=== PATIENT | female | born 2000 | race Hispanic/Latino ===

== ENCOUNTER 2022-12-11 08:38 | Emergency (ER) | payer SELFPAY ==
[2022-12-11] MEDS ORDERED: Morphine 4 MG/ML VIAL ONE (08:58)
[2022-12-11] MEDS ORDERED: Ondansetron PF 4 MG/2 ML Vial ONE ×2 (08:58→12:02)
[2022-12-11 09:23] LABS: ALT (SGPT) 16 U/L (8-55); AST (SGOT) 21 U/L (5-34); Albumin 4.6 g/dL (3.5-5.0); Alkaline Phosphatase 41 U/L (40-110); Anion Gap 16 mmol/L (10-20); BUN (Urea Nitrogen) 12 mg/dL (7.0-18.7); Bilirubin, Total 0.3 mg/dL (0.2-1.2); Calc. Creatinine Clearance 0 mL/min (70-130); Calcium 9.6 mg/dL (7.8-10.44); Carbon Dioxide 20 mmol/L (22-29); Chloride 104 mmol/L (98-107); Estimated GFR 100; Globulin 2.8 g/dL (2.4-3.5); Glucose 144 mg/dL (70-105); Lipase 30 U/L (8-78); Potassium 3.4 mmol/L (3.5-5.1); Protein, Total 7.4 g/dL (6.0-8.3); Sodium 137 mmol/L (136-145)
[2022-12-11 09:38] LABS: #Basophils 0.1 thou/uL (0.0-0.2); #Eosinphils 0.1 thou/uL (0.0-0.7); #Lymphocytes 2.6 thou/uL (1.20-3.40); #Monocytes 0.5 thou/uL (0.11-0.59); #Neutrophils 6.6 thou/uL (1.40-6.50); %Basophils 0.9 % (0.0-1.0); %Eosinophils 1.3 % (0.0-10.0); %Lymphocytes 26.5 % (21.0-51.0); %Monocytes 5.3 % (0.0-10.0); Hemoglobin 12.7 g/dL (12.0-16.0); Mean Corpuscular HGB CONC 32.2 g/dL (32.0-36.0); Mean Corpuscular Hemoglobin 30.5 pg (27.0-31.0); Mean Corpuscular Volume 94.9 fl (78.0-98.0); Mean Platelet Volume 7.8 fL (7.4-10.4); Platelet Count 199 10x3/uL (130-400); RBC Distribution Width 11.6 % (11.5-14.5); Red Blood Cell (RBC) Count 4.17 mill/uL (4.20-5.40); White Blood Cell (WBC) Count 9.9 10x3/uL (4.8-10.8)
[2022-12-11 09:41] LABS: BHCG - Serum Negative (NEGATIVE); Pregs Control Bar Appear? YES (CONTROL BAR)
[2022-12-11 09:46] LABS: Prothrombin Time 13.2 sec (12.0-14.7)
[2022-12-11 09:47] LABS: PTT 23.7 sec (22.9-36.1)
[2022-12-11 09:49] LABS: D-Dimer Test Less than 0.27 *mcg/mL (0.27-0.43)
[2022-12-11] MEDS ORDERED: Pantoprazole 40 MG VIAL ONE (09:57)
[2022-12-11] MEDS ORDERED: Metoclopramide HCl 10 MG/2 ML VIAL ONE (09:59)
[2022-12-11] MEDS ORDERED: Morphine 2 MG/ML VIAL ONE (09:59)
[2022-12-11 10:00] LABS: Bilirubin Negative (Negative); Blood, Urine Trace (Negative); Clarity Clear (Clear); Glucose, Urine (Dipstick) Negative (Negative); Ketone, Urine 40 mg/dL (Negative); Leukocyte Negative (Negative); Nitrite Negative (Negative); Protein, Urine (Dipstick) Negative (Neg-Trace); Specific Gravity, Urine 1.015 (1.005-1.030); Urobilinogen 0.2 mg/dL (Less than 2)
[2022-12-11 10:07] LABS: Pregnancy Test - Urine (BHCG) Negative (Negative); Pregu Control Background? CLEAR/WHITE (CLR/WHITE); Pregu Control Bar Appear? YES (CONTROL BAR); Specific Gravity 1.015 (1.002-1.036)
[2022-12-11 10:08] LABS: Amphetamine Not Detected (NotDetected); Barbiturates Screen Not Detected (NotDetected); Benzodiazepine Screen Not Detected (NotDetected); Cocaine Metabolite Screen Not Detected (NotDetected); Methadone Not Detected (NotDetected); Methamphetamine Not Detected (NotDetected); Opiate Screen Detected (NotDetected); Oxycodone Screen Not Detected (NotDetected); Phencyclidine (PCP) Not Detected (NotDetected); THC/Cannabinoid Screen Detected (NotDetected); Tricyclic Screen Not Detected (NotDetected)
[2022-12-11 10:15] LABS: CAUTI Indications for Culture Urological Procedure; RBC/HPF 0-3 HPF (0-3); Squamous Epithelial None Seen HPF (0-3); WBC/HPF None Seen HPF (0-3)
[2022-12-11 10:16] LABS: Bacteria/HPF None Seen HPF (None Seen)
[2022-12-11 10:18] LABS: Urine Culture Reflex Yes Yes
[2022-12-11] MEDS ORDERED: Ketorolac Tromethamine 30 MG/ML VIAL ONE (12:02)
== END 2022-12-11 13:25 | disposition home or self-care (01) ==
LOC: NAV ERS 08:38
DX: R10.13 Epigastric pain (principal); R11.2 Nausea with vomiting, unspecified
CPT/HCPCS: 71275; 74176; 80053; 80306; 81001; 81025; 83690; 84484; 84703; 85025; 85379; 85610; 85730; 87086; 93005; 96374; 96375; 96376; C9113; J1885; J2270; J2272; J2405; J2765

== ENCOUNTER 2025-03-03 09:01 | Emergency (ER) | payer SELFPAY ==
[2025-03-03] MEDS ORDERED: Pantoprazole 40 MG VIAL ONE (09:27)
[2025-03-03] MEDS ORDERED: Ondansetron PF 4 MG/2 ML Vial ONE (09:27)
[2025-03-03 09:40] LABS: Hematocrit 42.8 % (36.0-47.0); Hemoglobin 15.0 g/dL (12.0-16.0); Mean Corpuscular Hemoglobin 31.0 pg (27.0-31.0); Mean Corpuscular Volume 88.7 fl (78.0-98.0); Platelet Count 269 10x3/uL (130-400); Red Blood Cell (RBC) Count 4.82 mill/uL (4.20-5.40); White Blood Cell (WBC) Count 13.4 10x3/uL (4.8-10.8)
[2025-03-03 09:41] LABS: BHCG - Serum Negative (NEGATIVE); Pregs Control Bar Appear? YES (CONTROL BAR)
[2025-03-03 09:45] LABS: MDiff Complete? YES
[2025-03-03 09:50] LABS: ALT (SGPT) 30 U/L (Less than 34); AST (SGOT) 36 U/L (11-34); Albumin 5.7 g/dL (3.1-4.5); Alkaline Phosphatase 47 U/L (40-110); Anion Gap 22 mmol/L (10-20); BUN (Urea Nitrogen) 36 mg/dL (7.0-18.7); Bilirubin, Total 1.1 mg/dL (0.3-1.2); Calc. Creatinine Clearance 0 mL/min (70-130); Calcium 10.6 mg/dL (7.8-10.44); Carbon Dioxide 20 mmol/L (22-29); Chloride 96 mmol/L (98-107); Globulin 3.4 g/dL (2.4-3.5); Glucose 134 mg/dL (70-105); Lipase 6 U/L (8-78); Potassium 3.4 mmol/L (3.5-5.1); Sodium 135 mmol/L (136-145)
[2025-03-03] MEDS ORDERED: Simethicone Chewable 80 MG TAB ONE (11:26)
[2025-03-03] MEDS ORDERED: Ketorolac Tromethamine 30 MG (1 mL) VIAL ONE (11:27)
[2025-03-03 11:28] LABS: Glucose, Urine (Dipstick) Negative (Negative); Leukocyte Negative (Negative); Protein, Urine (Dipstick) 100 mg/dL (Neg-Trace); Specific Gravity, Urine Greater/Equal 1.030 (1.005-1.030)
[2025-03-03 11:53] LABS: Bacteria/HPF 4+ HPF (None Seen); CAUTI Indications for Culture Pelvic or flank pain; RBC/HPF 0-3 HPF (0-3)
[2025-03-03 11:54] LABS: Urine Culture Reflex No No
== END 2025-03-03 12:45 | disposition home or self-care (01) ==
LOC: NAV ERS 09:01
DX: K59.89 Other specified functional intestinal disorders (principal)
CPT/HCPCS: 74176; 80053; 81001; 83690; 84703; 85025; 87086; 96361; 96374; 96375; J1885; J2272; J2405; J2470; J7030

== ENCOUNTER 2025-05-12 14:12 | Emergency (ER) | payer SELFPAY ==
[2025-05-12] MEDS ORDERED: Pantoprazole 40 MG VIAL ONE (14:21)
[2025-05-12] MEDS ORDERED: Ondansetron PF 4 MG/2 ML Vial ONE (14:21)
[2025-05-12 15:02] LABS: ALT (SGPT) 32 U/L (Less than 34); AST (SGOT) 36 U/L (11-34); Albumin 5.6 g/dL (3.1-4.5); Alkaline Phosphatase 50 U/L (40-110); Anion Gap 24 mmol/L (10-20); BUN (Urea Nitrogen) 22 mg/dL (7.0-18.7); Bilirubin, Total 0.9 mg/dL (0.3-1.2); Calc. Creatinine Clearance 0 mL/min (70-130); Calcium 10.4 mg/dL (7.8-10.44); Carbon Dioxide 20 mmol/L (22-29); Chloride 97 mmol/L (98-107); Globulin 3.1 g/dL (2.4-3.5); Glucose 158 mg/dL (70-105); Lipase 9 U/L (8-78); Potassium 3.6 mmol/L (3.5-5.1); Sodium 137 mmol/L (136-145)
[2025-05-12 15:07] LABS: BHCG - Serum Negative (NEGATIVE); Pregs Control Bar Appear? YES (CONTROL BAR)
[2025-05-12 15:17] LABS: #Basophils 0.0 thou/uL (0.0-0.2); #Eosinophils 0.0 thou/uL (0.0-0.7); #Lymphocytes 1.5 thou/uL (1.20-3.40); #Monocytes 0.6 thou/uL (0.11-0.59); #Neutrophils 11.5 thou/uL (1.40-6.50); %Basophils 0.3 % (0.0-1.0); %Eosinophils 0.0 % (0.0-10.0); %Lymphocytes 10.9 % (21.0-51.0); %Monocytes 4.5 % (0.0-10.0); %Neutrophils 84.3 % (42.0-75.0); Hematocrit 39.3 % (36.0-47.0); Hemoglobin 14.6 g/dL (12.0-16.0); Mean Corpuscular Hemoglobin 31.6 pg (27.0-31.0); Mean Corpuscular Volume 84.8 fl (78.0-98.0); Platelet Count 242 10x3/uL (130-400); Red Blood Cell (RBC) Count 4.64 mill/uL (4.20-5.40); White Blood Cell (WBC) Count 13.7 10x3/uL (4.8-10.8)
[2025-05-12 17:26] LABS: Glucose, Urine (Dipstick) Negative (Negative); Leukocyte Trace (Negative); Protein, Urine (Dipstick) Negative (Neg-Trace); Specific Gravity, Urine Less/Equal 1.005 (1.005-1.030)
[2025-05-12 17:35] LABS: Anion Gap 18 mmol/L (10-20); BUN (Urea Nitrogen) 18 mg/dL (7.0-18.7); Calc. Creatinine Clearance 0 mL/min (70-130); Calcium 8.3 mg/dL (7.8-10.44); Carbon Dioxide 18 mmol/L (22-29); Chloride 106 mmol/L (98-107); Glucose 114 mg/dL (70-105); Potassium 3.7 mmol/L (3.5-5.1); Sodium 138 mmol/L (136-145)
[2025-05-12 17:38] LABS: Bacteria/HPF 1+ HPF (None Seen); CAUTI Indications for Culture Pelvic or flank pain; RBC/HPF 0-3 HPF (0-3); WBC/HPF 0-3 HPF (0-3)
[2025-05-12 17:39] LABS: Urine Culture Reflex No No
== END 2025-05-12 17:56 | disposition home or self-care (01) ==
LOC: NAV ERS 14:12
DX: R10.10 Upper abdominal pain, unspecified (principal); R11.2 Nausea with vomiting, unspecified; N28.9 Disorder of kidney and ureter, unspecified; E86.0 Dehydration; D72.829 Elevated white blood cell count, unspecified
CPT/HCPCS: 80053; 81001; 83690; 84703; 85025; 96361; 96374; 96375; J2405; J2470; J7030

== ENCOUNTER 2025-05-13 02:15 | Emergency (ER) | payer SELFPAY ==
[2025-05-13] MEDS ORDERED: diphenhydrAMINE 50 MG/ML VIAL ONE (02:44)
[2025-05-13] MEDS ORDERED: Metoclopramide HCl 10 MG (2 mL) VIAL ONE (02:44)
[2025-05-13 03:05] LABS: #Basophils 0.0 thou/uL (0.0-0.2); #Eosinophils 0.0 thou/uL (0.0-0.7); #Lymphocytes 1.3 thou/uL (1.20-3.40); #Monocytes 0.7 thou/uL (0.11-0.59); #Neutrophils 10.6 thou/uL (1.40-6.50); %Basophils 0.4 % (0.0-1.0); %Eosinophils 0.0 % (0.0-10.0); %Lymphocytes 10.3 % (21.0-51.0); %Monocytes 5.7 % (0.0-10.0); %Neutrophils 83.6 % (42.0-75.0); Hematocrit 34.2 % (36.0-47.0); Hemoglobin 12.8 g/dL (12.0-16.0); Mean Corpuscular Hemoglobin 31.7 pg (27.0-31.0); Mean Corpuscular Volume 84.6 fl (78.0-98.0); Platelet Count 208 10x3/uL (130-400); Red Blood Cell (RBC) Count 4.05 mill/uL (4.20-5.40); White Blood Cell (WBC) Count 12.7 10x3/uL (4.8-10.8)
[2025-05-13 03:13] LABS: ALT (SGPT) 35 U/L (Less than 34); AST (SGOT) 34 U/L (11-34); Albumin 4.9 g/dL (3.1-4.5); Alkaline Phosphatase 41 U/L (40-110); Anion Gap 17 mmol/L (10-20); BUN (Urea Nitrogen) 15 mg/dL (7.0-18.7); Bilirubin, Total 0.9 mg/dL (0.3-1.2); Calc. Creatinine Clearance 0 mL/min (70-130); Calcium 9.3 mg/dL (7.8-10.44); Carbon Dioxide 19 mmol/L (22-29); Chloride 105 mmol/L (98-107); Globulin 2.6 g/dL (2.4-3.5); Glucose 132 mg/dL (70-105); Lipase 12 U/L (8-78); Potassium 3.5 mmol/L (3.5-5.1); Sodium 137 mmol/L (136-145)
[2025-05-13] MEDS ORDERED: Acetaminophen 325 MG TAB ONE (04:02)
== END 2025-05-13 04:48 | disposition home or self-care (01) ==
LOC: NAV ERS 02:15
DX: R10.12 Left upper quadrant pain (principal); R10.10 Upper abdominal pain, unspecified; R11.2 Nausea with vomiting, unspecified
CPT/HCPCS: 80053; 83690; 85025; 96361; 96374; 96375; J1200; J2765; J7030

== ENCOUNTER 2025-05-13 15:54 | Emergency (ER) | payer SELFPAY ==
[~2025-05-13 15:54] MED LIST: Iopamidol 370 76% 100 ML VIAL ONE
[2025-05-13] MEDS ORDERED: Ondansetron PF 4 MG/2 ML Vial ONE (16:25)
[2025-05-13] MEDS ORDERED: Pantoprazole 40 MG VIAL ONE (16:25)
[2025-05-13] MEDS ORDERED: Ketorolac Tromethamine 30 MG (1 mL) VIAL ONE (16:25)
[2025-05-13 16:40] LABS: #Basophils 0.0 thou/uL (0.0-0.2); #Eosinophils 0.0 thou/uL (0.0-0.7); #Lymphocytes 1.7 thou/uL (1.20-3.40); #Monocytes 0.7 thou/uL (0.11-0.59); #Neutrophils 6.8 thou/uL (1.40-6.50); %Basophils 0.1 % (0.0-1.0); %Eosinophils 0.0 % (0.0-10.0); %Lymphocytes 18.6 % (21.0-51.0); %Monocytes 7.5 % (0.0-10.0); %Neutrophils 73.8 % (42.0-75.0); Hematocrit 36.0 % (36.0-47.0); Hemoglobin 13.0 g/dL (12.0-16.0); Mean Corpuscular Hemoglobin 30.8 pg (27.0-31.0); Mean Corpuscular Volume 85.5 fl (78.0-98.0); Platelet Count 204 10x3/uL (130-400); Red Blood Cell (RBC) Count 4.21 mill/uL (4.20-5.40); White Blood Cell (WBC) Count 9.2 10x3/uL (4.8-10.8)
[2025-05-13 16:54] LABS: ALT (SGPT) 32 U/L (Less than 34); AST (SGOT) 33 U/L (11-34); Albumin 4.8 g/dL (3.1-4.5); Alkaline Phosphatase 36 U/L (40-110); Anion Gap 14 mmol/L (10-20); BUN (Urea Nitrogen) 10 mg/dL (7.0-18.7); Bilirubin, Total 0.9 mg/dL (0.3-1.2); Calc. Creatinine Clearance 0 mL/min (70-130); Calcium 9.1 mg/dL (7.8-10.44); Carbon Dioxide 22 mmol/L (22-29); Chloride 103 mmol/L (98-107); Globulin 2.4 g/dL (2.4-3.5); Glucose 138 mg/dL (70-105); Lipase 12 U/L (8-78); Potassium 3.3 mmol/L (3.5-5.1); Sodium 136 mmol/L (136-145)
[2025-05-13 17:51] LABS: Glucose, Urine (Dipstick) Negative (Negative); Leukocyte Negative (Negative); Protein, Urine (Dipstick) Negative (Neg-Trace); Specific Gravity, Urine 1.015 (1.005-1.030)
[2025-05-13 17:58] LABS: CAUTI Indications for Culture Pelvic or flank pain; RBC/HPF 0-3 HPF (0-3); WBC/HPF 0-3 HPF (0-3)
[2025-05-13 17:59] LABS: Urine Culture Reflex No No
[2025-05-13 18:01] LABS: Cocaine Metabolite Screen Negative (Negative); THC/Cannabinoid Screen PRELIM POSITIVE (Negative); Tricyclic Screen Negative (Negative)
== END 2025-05-13 20:36 | disposition short-term general hospital (02) ==
LOC: NAV ERS 15:54
DX: R10.11 Right upper quadrant pain (principal); R11.2 Nausea with vomiting, unspecified; R03.0 Elevated blood-pressure reading, without diagnosis of hypertension; Z79.899 Other long term (current) drug therapy
CPT/HCPCS: 74177; 80306; 81001; 82274; 83690; 96361; 96374; 96375; J1885; J2272; J2405; J2470; J7030; Q9967

== ENCOUNTER 2025-05-15 13:05 | Emergency (ER) | payer SELFPAY ==
[2025-05-15 14:51] LABS: BHCG - Serum Negative (NEGATIVE); Pregs Control Bar Appear? YES (CONTROL BAR)
[2025-05-15 15:00] LABS: Hematocrit 35.9 % (36.0-47.0); Hemoglobin 13.2 g/dL (12.0-16.0); Mean Corpuscular Hemoglobin 31.1 pg (27.0-31.0); Mean Corpuscular Volume 84.7 fl (78.0-98.0); Platelet Count 186 10x3/uL (130-400); Red Blood Cell (RBC) Count 4.23 mill/uL (4.20-5.40)
[2025-05-15] MEDS ORDERED: Metoclopramide HCl 10 MG (2 mL) VIAL ONE (15:00)
[2025-05-15] MEDS ORDERED: diphenhydrAMINE 50 MG/ML VIAL ONE (15:00)
[2025-05-15 15:02] LABS: ALT (SGPT) 26 U/L (Less than 34); AST (SGOT) 18 U/L (11-34); Albumin 4.7 g/dL (3.1-4.5); Alkaline Phosphatase 35 U/L (40-110); Anion Gap 18 mmol/L (10-20); BUN (Urea Nitrogen) 14 mg/dL (7.0-18.7); Bilirubin, Total 1.0 mg/dL (0.3-1.2); Calc. Creatinine Clearance 0 mL/min (70-130); Calcium 9.1 mg/dL (7.8-10.44); Carbon Dioxide 21 mmol/L (22-29); Chloride 99 mmol/L (98-107); Globulin 2.4 g/dL (2.4-3.5); Glucose 78 mg/dL (70-105); Lipase 15 U/L (8-78); Potassium 3.3 mmol/L (3.5-5.1); Sodium 135 mmol/L (136-145); Troponin I Less than 0.010 ng/mL (< 0.028)
[2025-05-15 15:09] LABS: MDiff Complete? YES; White Blood Cell (WBC) Count 7.2 10x3/uL (4.8-10.8)
[2025-05-15 15:15] LABS: Platelet Adequacy Comment Appears Adequate; Toxic Granulation SLIGHT
[2025-05-15 15:27] LABS: Glucose, Urine (Dipstick) Negative (Negative); Leukocyte Negative (Negative); Protein, Urine (Dipstick) Trace mg/dL (Neg-Trace); Specific Gravity, Urine 1.010 (1.005-1.030)
[2025-05-15 15:33] LABS: Bacteria/HPF 1+ HPF (None Seen); CAUTI Indications for Culture Dysuria,urgency,freq; Mucous/LPF 1+ LPF (<2+); RBC/HPF 0-3 HPF (0-3); WBC/HPF 0-3 HPF (0-3)
[2025-05-15 15:34] LABS: Cocaine Metabolite Screen Negative (Negative); THC/Cannabinoid Screen PRELIM POSITIVE (Negative); Tricyclic Screen Negative (Negative); Urine Culture Reflex No No
== END 2025-05-15 16:56 | disposition home or self-care (01) ==
LOC: NAV ERS 13:05
DX: R55 Syncope and collapse (principal); R11.2 Nausea with vomiting, unspecified; R11.16 Cannabis hyperemesis syndrome; K31.84 Gastroparesis; R29.700 NIHSS score 0; Z79.899 Other long term (current) drug therapy
CPT/HCPCS: 71045; 80053; 80306; 81001; 83690; 84484; 84703; 85025; 85379; 93005; 96361; 96365; 96375; J1200; J2765; J7030

== ENCOUNTER 2025-05-16 11:49 | Emergency (ER) | payer SELFPAY ==
[2025-05-16 13:12] LABS: #Basophils 0.0 thou/uL (0.0-0.2); #Eosinophils 0.0 thou/uL (0.0-0.7); #Lymphocytes 1.3 thou/uL (1.20-3.40); #Monocytes 0.3 thou/uL (0.11-0.59); #Neutrophils 4.8 thou/uL (1.40-6.50); %Basophils 0.6 % (0.0-1.0); %Eosinophils 0.1 % (0.0-10.0); %Lymphocytes 20.0 % (21.0-51.0); %Monocytes 4.9 % (0.0-10.0); %Neutrophils 74.3 % (42.0-75.0); Hematocrit 37.5 % (36.0-47.0); Hemoglobin 13.6 g/dL (12.0-16.0); Mean Corpuscular Hemoglobin 30.9 pg (27.0-31.0); Mean Corpuscular Volume 85.4 fl (78.0-98.0); Platelet Count 214 10x3/uL (130-400); Red Blood Cell (RBC) Count 4.40 mill/uL (4.20-5.40); White Blood Cell (WBC) Count 6.4 10x3/uL (4.8-10.8)
[2025-05-16] MEDS ORDERED: Metoclopramide HCl 10 MG (2 mL) VIAL ONE (13:14)
[2025-05-16 13:30] LABS: ALT (SGPT) 22 U/L (Less than 34); AST (SGOT) 23 U/L (11-34); Albumin 4.8 g/dL (3.1-4.5); Alkaline Phosphatase 33 U/L (40-110); Anion Gap 15 mmol/L (10-20); BUN (Urea Nitrogen) 14 mg/dL (7.0-18.7); Bilirubin, Total 0.9 mg/dL (0.3-1.2); Calc. Creatinine Clearance 0 mL/min (70-130); Calcium 8.9 mg/dL (7.8-10.44); Carbon Dioxide 23 mmol/L (22-29); Chloride 100 mmol/L (98-107); Globulin 2.3 g/dL (2.4-3.5); Glucose 100 mg/dL (70-105); Lipase 20 U/L (8-78); Potassium 3.2 mmol/L (3.5-5.1); Sodium 135 mmol/L (136-145)
[2025-05-16 13:45] LABS: Glucose, Urine (Dipstick) Negative (Negative); Leukocyte Negative (Negative); Protein, Urine (Dipstick) Trace mg/dL (Neg-Trace); Specific Gravity, Urine 1.025 (1.005-1.030)
[2025-05-16] MEDS ORDERED: NS 0.9% w/ 20 MEQ KCL 1,000 ML ONE (13:54)
[2025-05-16 13:55] LABS: Cocaine Metabolite Screen Negative (Negative); THC/Cannabinoid Screen PRELIM POSITIVE (Negative); Tricyclic Screen Negative (Negative)
[2025-05-16 13:59] LABS: CAUTI Indications for Culture Pelvic or flank pain; RBC/HPF 0-3 HPF (0-3); WBC/HPF 0-3 HPF (0-3)
[2025-05-16 14:00] LABS: Bacteria/HPF Rare-Few HPF (None Seen)
[2025-05-16 14:01] LABS: Pregnancy Test - Urine (BHCG) Negative (Negative); Pregu Control Bar Appear? YES (CONTROL BAR); Urine Culture Reflex No No
[2025-05-16 14:02] LABS: Pregu Control Background? CLEAR/WHITE (CLR/WHITE)
[2025-05-16] MEDS ORDERED: Ketorolac Tromethamine 30 MG (1 mL) VIAL ONE (14:04)
[2025-05-16] MEDS ORDERED: Ondansetron PF 4 MG/2 ML Vial ONE (16:10)
== END 2025-05-16 20:45 | disposition short-term general hospital (02) ==
LOC: NAV ERS 11:49
DX: R10.11 Right upper quadrant pain (principal); R11.2 Nausea with vomiting, unspecified
CPT/HCPCS: 80053; 80306; 81001; 81025; 83690; 85025; 96365; 96366; 96367; 96375; 96376; J1885; J2272; J2405; J2765; J3010; J3480